=== PATIENT | female | born 1965 | race Asian ===

== ENCOUNTER 2021-02-08 08:08 | Outpatient (REF) | payer OTHER, SELFPAY | END 2021-02-08 08:09 | disposition home or self-care (01) | LOC: HO.LAB 08:08 | PROVIDERS: Visit Provider Internal Medicine | DX: Z20.822 Contact with and (suspected) exposure to COVID-19 (principal) | CPT/HCPCS: 36415; C9803; U0003; U0005 ==

== ENCOUNTER 2021-08-23 11:07 | Outpatient (REF) | payer OTHER, SELFPAY ==
[2021-08-23 13:59] LABS: Basophils Percent Auto 0.3 % (0-2); Eosinophils Absolute Auto 0.1 X10*3/uL (0.0-0.4); Eosinophils Percent Auto 1.6 % (0-4); Hematocrit 38.1 % (37-47); Hemoglobin 11.8 g/dl (12.0-16.0); Imm Gran Abs Auto 0.01 X10*3/uL (0.00-0.03); Imm Gran Pct Auto 0.3 % (0.0-0.4); Lymphocytes Absolute Auto 1.3 X10*3/uL (1.2-4.9); Lymphocytes Percent Auto 41.4 % (20-40); MANUAL DIFF FLAG NO; Mean Corpuscular Hemoglobin 25.5 pg (27.0-33.0); Mean Corpuscular Volume 82.5 fL (80-98); Mean Platelet Volume 9.7 fL (9.4-12.3); Monocytes Absolute Auto 0.2 X10*3/uL (0.1-1.2); Monocytes Percent Auto 5.6 % (2-11); Neutrophils Absolute Auto 1.5 X10*3/uL (2.0-8.3); Neutrophils Percent Auto 50.8 % (45-73); Platelet Count 205 X10*3/uL (160-400); Red Blood Count 4.62 X10*6/uL (4.20-5.50); Red Cell Distribution Width 15.9 % (11.0-16.0)
[2021-08-23 14:45] LABS: Alanine Aminotransferase 25 U/L (0-31); Albumin Level 4.1 g/dL (3.5-5.0); Alkaline Phosphatase 57 U/L (39-117); Anion Gap 13 (12-20); Aspartate Amino Transferase 25 U/L (5-31); Bilirubin Total 0.8 mg/dL (0.0-1.0); Blood Urea Nitrogen 16 mg/dL (9-16); C Reactive Protein 0.77 mg/dL (< or = 0.50); Calcium 8.7 mg/dL (8.4-10.2); Carbon Dioxide 26 mmol/L (22-29); Chloride 106 mmol/L (96-108); Cholesterol 225 mg/dL; Estimated Glomerular Filt Rate > 60; Glucose Fasting 91 mg/dL (60-99); HDL Cholesterol 57 mg/dL; LDL Cholesterol Calculated 148 mg/dl; Potassium 3.9 mmol/L (3.3-5.1); Sodium 141 mmol/L (135-145); Total Protein 6.9 g/dL (6.5-8.0); Triglycerides 100 mg/dL
[2021-08-23 15:50] LABS: Free T4 (Free Thyroxine) 0.92 ng/dL (0.71-1.85); Thyroid Stimulating Hormone 3.43 uIU/mL (0.32-4.0)
== END 2021-08-23 11:08 | disposition home or self-care (01) ==
LOC: HO.10HDL 11:07
PROVIDERS: Visit Provider Internal Medicine
DX: R60.0 Localized edema (principal); J45.909 Unspecified asthma, uncomplicated; E03.9 Hypothyroidism, unspecified; E78.00 Pure hypercholesterolemia, unspecified
CPT/HCPCS: 36415; 80053; 80061; 84439; 84443; 85025; 86140

== ENCOUNTER 2021-08-27 11:39 | Outpatient (REF) | payer OTHER, SELFPAY ==
--- NOTE | ~2021-08-27 | XR_ITS ---
EXAMINATION: XR HAND, RIGHT XR HAND, LEFT CLINICAL INFORMATION: Osteoarthritis. COMPARISON: Right hand radiographs dated 05/14/2018. TECHNIQUE: AP, oblique, and lateral views of the right and left hand. FINDINGS: Right Hand: Joint space narrowing with small marginal osteophytes at the 1st carpometacarpal joint. Joint space narrowing with tiny marginal osteophytes scattered throughout the metacarpophalangeal and interphalangeal joints. No osseous erosion. No abnormal soft tissue calcification. Left Hand: Joint space narrowing with marginal osteophytes at the triscaphe and 1st carpometacarpal joints. Mild joint space narrowing with small marginal osteophytes scattered throughout the interphalangeal joints. No osseous erosion. No fracture or dislocation. No abnormal soft tissue calcification. XR/XR hand RT min 3V IMPRESSION: RIGHT HAND: Mild osteophyte arthritis at the 1st carpal metacarpal joint as well as scattered throughout the metacarpophalangeal and interphalangeal joints, slightly progressed. LEFT HAND: Mild osteoarthrosis at the triscaphe and 1st carpometacarpal joints as well as scattered throughout the interphalangeal joints.
--- NOTE | ~2021-08-27 | XR_ITS ---
EXAMINATION: XR HAND, RIGHT XR HAND, LEFT CLINICAL INFORMATION: Osteoarthritis. COMPARISON: Right hand radiographs dated 05/14/2018. TECHNIQUE: AP, oblique, and lateral views of the right and left hand. FINDINGS: Right Hand: Joint space narrowing with small marginal osteophytes at the 1st carpometacarpal joint. Joint space narrowing with tiny marginal osteophytes scattered throughout the metacarpophalangeal and interphalangeal joints. No osseous erosion. No abnormal soft tissue calcification. Left Hand: Joint space narrowing with marginal osteophytes at the triscaphe and 1st carpometacarpal joints. Mild joint space narrowing with small marginal osteophytes scattered throughout the interphalangeal joints. No osseous erosion. No fracture or dislocation. No abnormal soft tissue calcification. XR/XR hand LT min 3V IMPRESSION: RIGHT HAND: Mild osteophyte arthritis at the 1st carpal metacarpal joint as well as scattered throughout the metacarpophalangeal and interphalangeal joints, slightly progressed. LEFT HAND: Mild osteoarthrosis at the triscaphe and 1st carpometacarpal joints as well as scattered throughout the interphalangeal joints.
[2021-08-27 14:20] LABS: Lipase 19 U/L (8-78)
[2021-08-27 14:43] LABS: Vitamin D 25-OH Total 22.7 ng/mL (>30)
[2021-09-01 05:26] LABS: Transglutaminase Ab IgG <1.0 U/mL; Transglutaminase IgA <1.0 U/mL
== END 2021-08-27 11:40 | disposition home or self-care (01) ==
LOC: HO.10HDL 11:39
PROVIDERS: Visit Provider Internal Medicine
DX: M19.042 Primary osteoarthritis, left hand (principal); M19.041 Primary osteoarthritis, right hand; E55.9 Vitamin D deficiency, unspecified; R10.9 Unspecified abdominal pain
CPT/HCPCS: 36415; 73130; 82306; 83516; 83690

== ENCOUNTER 2021-09-08 13:57 | Outpatient (REF) | payer OTHER, SELFPAY ==
--- NOTE | ~2021-09-08 | MM_ITS ---
EXAMINATION: MM SCREENING DIGITAL BREAST TOMOSYNTHESIS, BILATERAL CLINICAL INFORMATION: Screening. Asymptomatic. The lifetime risk of breast cancer based on the Tyrer-Cuzick Model is 9%. COMPARISON: Mammography: 09/13/2019, 09/06/2018, 05/04/2017 TECHNIQUE: Digital breast tomosynthesis is performed in both the craniocaudal and mediolateral oblique views along with computer-aided detection (CAD). Synthesized 2D images are generated from the tomosynthesis. FINDINGS: There are scattered areas of fibroglandular density (ACR BI-RADS breast composition Category b). There are no significant masses, abnormal calcifications, or other abnormalities. The axilla and skin contours are unremarkable. MM/MM tomosynthesis screening BI IMPRESSION: No mammographic evidence of malignancy. ASSESSMENT: BI-RADS 1: Negative RECOMMENDATION: Routine annual mammography screening. This patient's information was entered into a reminder system with a target due date for their next mammogram.
== END 2021-09-08 13:58 | disposition home or self-care (01) ==
LOC: HO.MAMMO 13:57
PROVIDERS: Visit Provider Internal Medicine
DX: Z12.31 Encounter for screening mammogram for malignant neoplasm of breast (principal)
CPT/HCPCS: 77063; 77067

== ENCOUNTER → 2021-10-05 09:21 | Outpatient (BNVA) | payer OTHER, SELFPAY | PROVIDERS: PCP Internal Medicine; Visit Provider Orthopaedic Surgery | DX: M19.041 Primary osteoarthritis, right hand (principal); M19.042 Primary osteoarthritis, left hand | CPT/HCPCS: 99202 ==

== ENCOUNTER 2022-04-19 13:57 | Outpatient (REF) | payer MEDICAID, SELFPAY ==
[2022-04-19 14:21] LABS: MANUAL DIFF FLAG NO
[2022-04-19 14:56] LABS: Basophils Percent Auto 0.5 % (0-2); Eosinophils Absolute Auto 0.1 X10*3/uL (0.0-0.4); Eosinophils Percent Auto 1.5 % (0-4); Hematocrit 39.9 % (37.0-47.0); Hemoglobin 12.4 g/dl (12.0-16.0); Imm Gran Abs Auto 0.01 X10*3/uL (0.00-0.03); Imm Gran Pct Auto 0.3 % (0.0-0.4); Lymphocytes Absolute Auto 1.2 X10*3/uL (1.2-4.9); Lymphocytes Percent Auto 31.7 % (20-40); Mean Corpuscular HGB Conc 31.1 g/dl (31.0-35.0); Mean Corpuscular Hemoglobin 26.4 pg (27.0-33.0); Mean Corpuscular Volume 85.1 fL (80.0-98.0); Mean Platelet Volume 9.5 fL (9.4-12.3); Monocytes Absolute Auto 0.1 X10*3/uL (0.1-1.2); Monocytes Percent Auto 3.3 % (2-11); Neutrophils Absolute Auto 2.5 x10*3/uL (2.0-8.3); Neutrophils Percent Auto 62.7 % (45-73); Platelet Count 205 X10*3/uL (160-400); Red Blood Count 4.69 X10*6/uL (4.20-5.50); Red Cell Distribution Width 14.5 % (11.0-16.0); White Blood Count 3.9 X10*3/uL (4.8-10.8)
[2022-04-19 15:20] LABS: Alanine Aminotransferase 20 U/L (0-31); Albumin Level 4.2 g/dL (3.5-5.0); Alkaline Phosphatase 66 U/L (39-117); Anion Gap 10 (12-20); Aspartate Amino Transferase 23 U/L (5-31); Bilirubin Total 0.5 mg/dL (0.0-1.0); Blood Urea Nitrogen 13 mg/dL (9-16); C Reactive Protein 0.14 mg/dL (< or = 0.50); Calcium 9.5 mg/dL (8.4-10.2); Carbon Dioxide 29 mmol/L (22-29); Chloride 107 mmol/L (96-108); Estimated Glomerular Filt Rate > 60; Glucose Random 100 mg/dL (60-115); Lipase 17 U/L (8-78); Potassium 3.9 mmol/L (3.3-5.1); Sodium 142 mmol/L (135-145); Total Protein 7.3 g/dL (6.5-8.0)
[2022-04-19 15:43] LABS: Free T4 (Free Thyroxine) 0.93 ng/dL (0.71-1.85); Thyroid Stimulating Hormone 4.53 uIU/mL (0.32-4.0)
== END 2022-04-19 13:58 | disposition home or self-care (01) ==
LOC: HO.LAB 13:57
PROVIDERS: PCP Internal Medicine; Visit Provider Internal Medicine
DX: R10.9 Unspecified abdominal pain (principal); E03.9 Hypothyroidism, unspecified
CPT/HCPCS: 36415; 80053; 83690; 84439; 84443; 85025; 86140

== ENCOUNTER 2022-07-28 11:14 | Outpatient (REF) | payer MEDICAID, SELFPAY ==
[2022-07-28 12:23] LABS: Influenza A PCR NEGATIVE (Negative); Influenza B PCR NEGATIVE (Negative); Resp Syncy Virus RNA Qual PCR NEGATIVE (Negative); SARS COV2 PCR INHOUSE POSITIVE (Negative)
== END 2022-07-28 11:15 | disposition home or self-care (01) ==
LOC: HO.LNP 11:14
PROVIDERS: Visit Provider Internal Medicine
DX: Z20.822 Contact with and (suspected) exposure to COVID-19 (principal)
CPT/HCPCS: 0241U

== ENCOUNTER 2022-10-04 09:51 | Day surgery (SDC) | payer MEDICAID, SELFPAY ==
--- NOTE | 2022-10-03 12:54 | P.CONAN_ITS ---
Documented by User: Azalia Mcdowell NP 10/03/22 12:55 HPI - Anesthesia Eval Consult details Narrative: 57yo F for Upper Endoscopy and Colonoscopy COUNTS INCLUDE 234 BEDS AT THE [facility] Active Problems Active Problems: All Active Problems (Updated 10/03/22 @ 12:20 by Jenna Mercedes, LAURA) Osteoarthritis of right hand (Acute) Osteoarthritis of left hand (Acute) Past Medical History Medical History Asthma Elevated cholesterol Hypothyroidism Surgical History Surgical History (Updated 10/04/22 @ 11:55 by Sylvia Roberson MD) H/O colonoscopy History of esophagogastroduodenoscopy (EGD) Hx of appendectomy Social History Social History Patient Tobacco Use Status: Never used Tobacco Use of substances other than those prescribed or required for medical reasons: No Are you DNR?: No Advance Directives: No Advance Directives Information Provided: Yes Current occupational 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 Allergies Allergy/AdvReac Type Severity Reaction Status Date / Time amoxicillin Allergy Mild Rash Verified 10/04/22 10:57 ampicillin Allergy Mild rash Verified 10/04/22 10:57 Home Medications Medication Instructions Recorded Confirmed Last Taken Type levothyroxine 13 mcg capsule 13 mcg PO DAILY 10/05/21 10/04/22 Unknown History simvastatin 5 mg tablet 5 mg PO DAILY 10/05/21 10/04/22 Unknown History Exam Exam Date and Time: October 03, 2022 1254 Pertinent Lab Results Pertinent Lab Results: Laboratory Tests 04/19/22 04/19/22 14:21 14:21 WBC 3.9 L Hgb 12.4 Hct 39.9 Plt Count 205 Sodium 142 Potassium 3.9 Chloride 107 Carbon Dioxide 29 BUN 13 Creatinine 0.70 Assessment and Plan Assessment Anesthesia Assessment: Chart Reviewed Documented by User: Sylvia Roberson MD 10/04/22 11:59 PMFSH Past Medical History Medical History Asthma Elevated cholesterol Hypothyroidism Family History Family history of problems with anesthesia: No Surgical History Surgical History (Updated 10/04/22 @ 11:55 by Sylvia Roberson MD) H/O colonoscopy History of esophagogastroduodenoscopy (EGD) Hx of appendectomy History of Problems with Anesthesia: No Social History Social History Patient Tobacco Use Status: Never used Tobacco Use of substances other than those prescribed or required for medical reasons: No Are you DNR?: No Advance Directives: No Advance Directives Information Provided: Yes Current occupational 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 Allergies Allergy/AdvReac Type Severity Reaction Status Date / Time amoxicillin Allergy Mild Rash Verified 10/04/22 10:57 ampicillin Allergy Mild rash Verified 10/04/22 10:57 Home Medications Medication Instructions Recorded Confirmed Last Taken Type levothyroxine 13 mcg capsule 13 mcg PO DAILY 10/05/21 10/04/22 Unknown History simvastatin 5 mg tablet 5 mg PO DAILY 10/05/21 10/04/22 Unknown History Exam Height,Weight and Vital Signs: Height 5 ft Weight 57.153 kg Vital Signs Temp Pulse Resp BP Pulse Ox O2 Del Method 10/04/22 11:02 97.5 F 59 16 135/67 97 Room Air Airway Mallampati Class: II TM Dist: >3cm Neck ROM: Full Loose/Missing/Broken Teeth: No (Small teeth in front with gaps in between. Denies broken or loose teeth) Heart: RRR Lungs: CTAB Assessment and Plan Assessment Anesthesia Assessment: Anesthesia Plan Discussed Final Anesthetic Review Family History of Problems with Anesthesia: No History of Problems with Anesthesia: No NPO: Yes ASA Class: II Final Preanesthetic Review: No Changes in Pt Med Stat, Meds/Allgs Chart Reviewed, Consent Obtained/Reviewed and Anes Risks/Benef Reviewed Patient Risk: Low Procedure Risk: Low Assessment/Block/Sedation in SS: Assess/Block/Sedation-SS Anesthetic Plan Anesthetic Plan: MAC: Disposition: Standard PACU
[2022-10-04 10:59] VITALS: BMI 24.6
[2022-10-04 11:02] VITALS: BP 135/67; PULSE 59; RESP 16; TEMP 36.4; O2SAT 97
[2022-10-04] MEDS: Lactated Ringers 1,000 ML 100 ML IVCONT (11:12)
--- NOTE | 2022-10-04 12:26 | MHC.SHP ---
Pre-Procedural Eval Section A Date of Service: 10/04/22 The patient is an INPATIENT: No Changes since office visit: No Cold of Flu in the past 2 weeks, No New Medical Problems, No Changes in Medication and No Patient answered all questions The History & Physical has been completed within 30 days and I have reviewed it.: Yes Section B Chief Complaint: Epigastric pain,screening Allergies: Allergies Allergy/AdvReac Type Severity Reaction Status Date / Time amoxicillin Allergy Mild Rash Verified 10/04/22 10:57 ampicillin Allergy Mild rash Verified 10/04/22 10:57 Plan I have reviewed the history and physical and performed a pertinent physical examination on my patient. No changes have occurred unless specified.
--- NOTE | 2022-10-04 13:10 | PM.OP ---
Brief Operative Note Date of Service: 10/04/22 Pre-op diagnosis: epoigastric pain screening Post-op diagnosis: same Procedure: egd colonoscopy Surgeon: Scooter Vaughn Anesthesia: MAC Was an Suture Polisher used for this Procedure?: No Estimated blood loss (mL): 5 Pathology: other Condition: stable Disposition: PACU
[2022-10-04 13:12] VITALS: BP 99/56; PULSE 80; RESP 12; TEMP 36.4; O2SAT 97
[2022-10-04 13:26] VITALS: BP 102/70; PULSE 77; RESP 15; TEMP 36.4; O2SAT 99
--- NOTE | 2022-10-05 01:18 | OP_ITS ---
SURGEON: Scooter Vaughn MD INDICATIONS: 1. Epigastric pain. 2. Colon cancer screening. PREOPERATIVE DIAGNOSIS: POSTOPERATIVE DIAGNOSIS: PROCEDURE PERFORMED: Upper endoscopy with biopsy, colonoscopy to the terminal ileum. ESTIMATED BLOOD LOSS: COMPLICATIONS: ANESTHESIA: Monitored anesthesia care. ASSISTANTS: SPECIMENS: DESCRIPTION OF PROCEDURE: History and physical performed. The risks and benefits of the procedure were explained to the patient. Informed consent was obtained. The patient was placed in the left lateral decubitus position. The Olympus video gastroscope was introduced into the esophagus, stomach, and duodenum. Examination was performed. The scope was removed. She was repositioned for colonoscopy. Digital rectal exam was performed and was found to be normal. The Olympus pediatric video colonoscope was introduced into the rectum and advanced to the cecum without difficulty. The cecum was identified by transillumination, palpation, and identification of ileocecal valve. Examination was performed. The scope was removed. She tolerated both procedures well and was taken to recovery area in stable condition. The procedure date is 10/04/2022. FINDINGS: Upper endoscopy: 1. Esophagus. The esophagus was normal. There was no esophagitis. Biopsies were obtained from the EG junction. 2. Stomach: The stomach was normal. The antral biopsies were obtained to evaluate for H pylori. 3. Duodenum: The bulb and second portion were normal. Colonoscopy: The terminal ileum was examined and appeared normal. The visualized colonic mucosa was normal. The quality of the prep was good. No polyps were identified. Retroflexed examination showed some small internal hemorrhoids. IMPRESSION: 1. Normal upper endoscopy. 2. Normal colonoscopy. RECOMMENDATION: 1. Follow up the biopsy results. 2. Repeat colonoscopy is recommended in 10 years for average risk individuals. MD KRIS Bhakta/FELIX / [id number]
== END 2022-10-04 14:55 | disposition home or self-care (01) ==
PROVIDERS: PCP Internal Medicine; Visit Provider Internal Medicine Gastroenterology
PROC: (CPT 45378; principal; 2022-10-04 11:10)
DX: Z12.11 Encounter for screening for malignant neoplasm of colon (principal); Z86.010 Personal history of colon polyps; K64.8 Other hemorrhoids; R10.13 Epigastric pain; Z80.0 Family history of malignant neoplasm of digestive organs; J45.909 Unspecified asthma, uncomplicated; E78.00 Pure hypercholesterolemia, unspecified; E03.9 Hypothyroidism, unspecified; Z79.899 Other long term (current) drug therapy; Z88.0 Allergy status to penicillin
CPT/HCPCS: 45378; 43239; 88305; 88342; J2250

== ENCOUNTER 2022-10-17 10:58 | Outpatient (REF) | payer MEDICAID, SELFPAY ==
[2022-10-17 14:03] LABS: Basophils Percent Auto 0.2 % (0-2); Eosinophils Percent Auto 0.8 % (0-4); Hematocrit 42.9 % (37.0-47.0); Hemoglobin 13.5 g/dl (12.0-16.0); Imm Gran Abs Auto 0.01 X10*3/uL (0.00-0.03); Imm Gran Pct Auto 0.2 % (0.0-0.4); Lymphocytes Absolute Auto 1.7 X10*3/uL (1.2-4.9); Lymphocytes Percent Auto 32.6 % (20-40); MANUAL DIFF FLAG SCAN; Mean Corpuscular HGB Conc 31.5 g/dl (31.0-35.0); Mean Corpuscular Hemoglobin 27.3 pg (27.0-33.0); Mean Corpuscular Volume 86.8 fL (80.0-98.0); Monocytes Absolute Auto 0.2 X10*3/uL (0.1-1.2); Monocytes Percent Auto 3.3 % (2-11); Neutrophils Absolute Auto 3.3 x10*3/uL (2.0-8.3); Neutrophils Percent Auto 62.9 % (45-73); Platelet Count 200 X10*3/uL (160-400); Red Blood Count 4.94 X10*6/uL (4.20-5.50); Red Cell Distribution Width 14.1 % (11.0-16.0); SCAN SMEAR FLAG 1; White Blood Count 5.2 X10*3/uL (4.8-10.8)
[2022-10-17 14:42] LABS: Alanine Aminotransferase 18 U/L (0-31); Albumin Level 4.2 g/dL (3.5-5.0); Alkaline Phosphatase 64 U/L (39-117); Anion Gap 9 (12-20); Aspartate Amino Transferase 22 U/L (5-31); Bilirubin Total 0.6 mg/dL (0.0-1.0); Blood Urea Nitrogen 18 mg/dL (9-16); Calcium 9.1 mg/dL (8.4-10.2); Carbon Dioxide 30 mmol/L (22-29); Chloride 104 mmol/L (96-108); Cholesterol 230 mg/dL; Estimated Glomerular Filt Rate > 60; Free T4 (Free Thyroxine) 0.91 ng/dL (0.71-1.85); Glucose Fasting 87 mg/dL (60-99); HDL Cholesterol 58 mg/dL; LDL Cholesterol Calculated 143 mg/dl; Potassium 4.3 mmol/L (3.3-5.1); Sodium 139 mmol/L (135-145); Thyroid Stimulating Hormone 3.66 uIU/mL (0.32-4.0); Total Protein 7.3 g/dL (6.5-8.0); Triglycerides 148 mg/dL
[2022-10-17 15:08] LABS: SLIDE REVIEW VERIFIED
== END 2022-10-17 10:59 | disposition home or self-care (01) ==
LOC: HO.10HDL 10:58
PROVIDERS: Visit Provider Internal Medicine
DX: Z00.00 Encounter for general adult medical examination without abnormal findings (principal); E03.9 Hypothyroidism, unspecified
CPT/HCPCS: 36415; 80053; 80061; 84439; 84443; 85025

== ENCOUNTER 2022-10-24 14:12 | Outpatient (REF) | payer MEDICAID, SELFPAY ==
--- NOTE | ~2022-10-24 | MM_ITS ---
EXAMINATION: MM SCREENING DIGITAL BREAST TOMOSYNTHESIS, BILATERAL CLINICAL INFORMATION: Screening. Asymptomatic. The lifetime risk of breast cancer based on the Tyrer-Cuzick Model is 9%. COMPARISON: Mammography: 09/08/2021, 09/13/2019, 09/06/2018 TECHNIQUE: Digital breast tomosynthesis is performed in both the craniocaudal and mediolateral oblique views along with computer-aided detection (CAD). Synthesized 2D images are generated from the tomosynthesis. FINDINGS: There are scattered areas of fibroglandular density (ACR BI-RADS breast composition Category b). There are no significant masses, abnormal calcifications, or other abnormalities. Parenchymal pattern is similar to prior studies. The axilla and skin contours are unremarkable. No significant changes from prior studies. MM/MM tomosynthesis screening BI IMPRESSION: No mammographic evidence of malignancy. ASSESSMENT: BI-RADS 1: Negative RECOMMENDATION: Routine annual mammography screening. This patient's information was entered into a reminder system with a target due date for their next mammogram.
== END 2022-10-24 14:13 | disposition home or self-care (01) ==
LOC: HO.MAMMO 14:12
PROVIDERS: PCP Internal Medicine; Visit Provider Internal Medicine
DX: Z12.31 Encounter for screening mammogram for malignant neoplasm of breast (principal)
CPT/HCPCS: 77063; 77067

== ENCOUNTER 2023-07-04 14:14 | Outpatient (REF) | payer MEDICAID, SELFPAY ==
--- NOTE | ~2023-07-04 | MM_ITS ---
Please note that the examination shouldn't be associated with the right breast ultrasound examination from the same date. That accession number is [id number] EXAMINATION: MM DIAGNOSTIC DIGITAL BREAST TOMOSYNTHESIS, BILATERAL AND RIGHT BREAST ULTRASOUND CLINICAL INFORMATION: Palpable lump upper outer quadrant right breast 7-11 o'clock region. The lifetime risk of breast cancer based on the Tyrer-Cuzick Model is 10.7%. COMPARISON: Mammography: This study is compared with prior mammograms dating back to 2018. MAMMOGRAPHY: TECHNIQUE: Digital breast tomosynthesis is performed in both the craniocaudal and mediolateral oblique views along with computer-aided detection (CAD). Synthesized 2D images are generated from the tomosynthesis. Spot compression of the upper outer quadrant of the right breast in the CC and lateral projections and a full lateral view of the right breast. FINDINGS: The breasts are heterogeneously dense, which may obscure small masses (ACR BI-RADS breast composition Category c). There are no significant masses, abnormal calcifications, or other abnormalities in either breast. There are no mammographic abnormalities in the area of palpable concern in the right breast. ULTRASOUND: Sonography of 7-11:00 region of the right breast, the area of patient's palpable concern, was performed. There is no discrete abnormality in this region. Clinical follow-up palpable area of concern is advised. MM/MM tomosynthesis diagnostic BI IMPRESSION: No mammographic signs of malignancy. No mammographic or sonographic correlates with the palpable area of concern in the upper outer quadrant of the right breast. Clinical follow-up is advised. Results are provided to the patient at time of visit by the technologist. No mammographic signs of malignancy left breast. ASSESSMENT: BI-RADS BI-RADS 1 - Negative RECOMMENDATION: 1 year F/U CLINICAL FOLLOW-UP IS ADVISED FOR THE PATIENT'S AREA OF PALPABLE CONCERN IN THE RIGHT BREAST. This patient's information was entered into a reminder system with a target due date for their next mammogram.
== END 2023-07-04 14:15 | disposition home or self-care (01) ==
LOC: HO.MAMMO 14:14
PROVIDERS: PCP Internal Medicine; Visit Provider Internal Medicine
DX: N63.11 Unspecified lump in the right breast, upper outer quadrant (principal)
CPT/HCPCS: 76642; 77062; 77066

== ENCOUNTER → 2023-07-04 14:30 | Outpatient (BNV) | payer MEDICAID, SELFPAY | PROVIDERS: PCP Internal Medicine; Visit Provider Radiology Diagnostic Radiology | DX: N63.10 Unspecified lump in the right breast, unspecified quadrant (principal) | CPT/HCPCS: 76642; 77062; 77066 ==

== ENCOUNTER 2024-05-17 09:28 | Day surgery (SDC) | payer MEDICAID, SELFPAY ==
[2024-05-15 14:32] VITALS: BMI 24.8
--- NOTE | 2024-05-16 08:41 | HO.ANESPROP2 ---
HPI - Anesthesia Eval Consult details Narrative: 58yo F for Upper Endoscopy PMFSH Active Problems Active Problems: All Active Problems Osteoarthritis of left hand (Acute) Osteoarthritis of right hand (Acute) Past Medical History Medical History Barretts esophagus GERD (gastroesophageal reflux disease) Elevated cholesterol Hypothyroidism Asthma Family History Family history of problems with anesthesia: No Surgical History Surgical History H/O colonoscopy History of esophagogastroduodenoscopy (EGD) Hx of appendectomy History of Problems with Anesthesia: No Social History Social History Patient Tobacco Use Status: Never used Tobacco Use of substances other than those prescribed or required for medical reasons: No Are you DNR?: No Advance Directives: No Advance Directives Information Provided: Yes Current occupational 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 Allergies Allergy/AdvReac Type Severity Reaction Status Date / Time amoxicillin Allergy Mild Rash Verified 10/04/22 10:57 ampicillin Allergy Mild rash Verified 10/04/22 10:57 Home Medications ?Medication ?Instructions ?Recorded ?Confirmed ?Last Taken ?Type levothyroxine 200 mcg tablet 200 mcg PO DAILY 05/15/24 05/15/24 Unknown History omeprazole 20 mg capsule,delayed 20 mg PO BID 05/15/24 05/15/24 Unknown History release simvastatin 40 mg tablet 40 mg PO DAILY 05/15/24 05/15/24 Unknown History Exam Height,Weight and Vital Signs: Height 5 ft Weight 57.606 kg Assessment and Plan Assessment Anesthesia Assessment: Chart Reviewed Final Anesthetic Review Family History of Problems with Anesthesia: No History of Problems with Anesthesia: No
[2024-05-17 10:17] VITALS: BMI 25.1
[2024-05-17 10:25] VITALS: BP 147/81; PULSE 84; RESP 16; TEMP 36.9; O2SAT 96
[2024-05-17] MEDS: Lactated Ringers 1,000 ML 100 ML IVCONT (10:44)
--- NOTE | 2024-05-17 10:56 | P.CONAN_ITS ---
[facility] Active Problems Active Problems: All Active Problems Osteoarthritis of left hand (Acute) Osteoarthritis of right hand (Acute) Past Medical History Medical History Barretts esophagus GERD (gastroesophageal reflux disease) Elevated cholesterol Hypothyroidism Asthma Functional capacity: independent ambulation Family History Family history of problems with anesthesia: No Surgical History Surgical History H/O colonoscopy History of esophagogastroduodenoscopy (EGD) Hx of appendectomy History of Problems with Anesthesia: No Social History Social History Patient Tobacco Use Status: Never used Tobacco Use of substances other than those prescribed or required for medical reasons: No Are you DNR?: No Advance Directives: No Advance Directives Information Provided: Yes Current occupational 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 Allergies Allergy/AdvReac Type Severity Reaction Status Date / Time amoxicillin Allergy Mild Rash Verified 10/04/22 10:57 ampicillin Allergy Mild rash Verified 10/04/22 10:57 Active Medications: Current Medications Albuterol Sulfate (Albuterol Sulfate (0.083%) 2.5 Mg/3 Ml Vial.Neb) 2.5 mg INHALE ONCE PRN PRN Reason: Shortness of Breath/Wheezing Lactated Ringer's (Lr) 1,000 mls @ 100 mls/hr IVCONT .Q10H MITESH Last Admin: 05/17/24 10:44 Dose: 100 mls/hr Home Medications ?Medication ?Instructions ?Recorded ?Confirmed ?Last Taken ?Type levothyroxine 200 mcg tablet 200 mcg PO DAILY 05/15/24 05/15/24 Unknown History omeprazole 20 mg capsule,delayed 20 mg PO BID 05/15/24 05/15/24 Unknown History release simvastatin 40 mg tablet 40 mg PO DAILY 05/15/24 05/15/24 Unknown History Exam Height,Weight and Vital Signs: Height 5 ft Weight 58.287 kg Last Vital Signs Temp 98.4 F 05/17/24 10:25 Pulse 84 05/17/24 10:25 Resp 16 05/17/24 10:25 BP 147/81 H 05/17/24 10:25 Pulse Ox 96 05/17/24 10:25 O2 Del Method Room Air 05/17/24 10:25 Airway Mallampati Class: II TM Dist: >3cm Neck ROM: Full Heart: RRR Lungs: CTA Assessment and Plan Assessment Anesthesia Assessment: Anesthesia Plan Discussed Final Anesthetic Review Family History of Problems with Anesthesia: No History of Problems with Anesthesia: No NPO: Yes ASA Class: II Final Preanesthetic Review: Meds/Allgs Chart Reviewed, Consent Obtained/Reviewed and Anes Risks/Benef Reviewed Patient Risk: Low Procedure Risk: Low Anesthetic Plan Anesthetic Plan: MAC: Disposition: Standard PACU
--- NOTE | 2024-05-17 11:09 | MHC.SHP ---
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 Details of Present Illness: see H&P no changes Relevant Family History (Specify if Yes): No Relevant Social History: None Present Medications: see Short Stay Collaborative assessment Medical History: No relevant PMH History of Previous Operations: Relevant previous surgery/procedure and date(s) Allergies: Allergies Allergy/AdvReac Type Severity Reaction Status Date / Time amoxicillin Allergy Mild Rash Verified 10/04/22 10:57 ampicillin Allergy Mild rash Verified 10/04/22 10:57 Review of Systems Sugical H&P ROS: Negative: Constitution, Cardiovascular, Respiratory, Neurological, Psychiatric, Hem-Onc, Allergic/Immunologic, Gastrointestinal, Genitourinary, Musculoskeletal, Integumentary, Endocrine and Eyes/Ears/Nose/Throat Exam Surgical H&P Exam: Normal: HEENT, Normal: Heart, Normal: Lungs, Normal: Extremities, Normal: Abdomen, Normal: Skin and Normal: Neurological Plan Diagnosis/Plan: Unchanged I have reviewed the history and physical and performed a pertinent physical examination on my patient. No changes have occurred unless specified. Time Spent With Patient Time: Total time managing care of this patient today ____ minutes.
[2024-05-17 11:28] VITALS: BP 110/55; PULSE 74; RESP 18; TEMP 36.3; O2SAT 96
--- NOTE | 2024-05-17 11:38 | P.BOP_ITS ---
Brief Operative Note Date of Service: 05/17/24 Pre-op diagnosis: barretts Post-op diagnosis: same Procedure: EGD Surgeon: Scooter Vaughn MD Anesthesia: MAC Was an Clinical Project Assistant used for this Procedure?: No Estimated blood loss (mL): 5 Pathology: other Condition: stable Disposition: PACU
[2024-05-17 11:47] VITALS: BP 138/82; PULSE 79; RESP 18; TEMP 36.1; O2SAT 95
--- NOTE | 2024-05-17 12:04 | OP_ITS ---
DATE OF SERVICE: 05/17/2024 SURGEON: Scooter Vaughn MD INDICATIONS: Chung esophagus. PREOPERATIVE DIAGNOSIS: POSTOPERATIVE DIAGNOSIS: PROCEDURE PERFORMED: Upper endoscopy with biopsy. ESTIMATED BLOOD LOSS: COMPLICATIONS: ANESTHESIA: Monitored anesthesia care. ASSISTANTS: SPECIMENS: DESCRIPTION OF PROCEDURE: A history and physical was performed. The risks and benefits of the procedure were explained to the patient and informed consent was obtained. The patient was placed in the left lateral decubitus position. The Olympus video gastroscope was introduced into the esophagus, stomach, and duodenum. Examination was performed and the scope was removed. She tolerated the procedure well and was returned to recovery area in stable condition. FINDINGS: Esophagus: The esophagus was normal. The EG junction was irregular. This was biopsied. There were no raised lesions or ulcerated areas. Stomach: The stomach showed no evidence of masses or ulcers. There was a single small less than 5 mm polyp on the lesser curvature in the upper body, which was removed with the biopsy forceps. Duodenum: The bulb and 2nd portion were normal. IMPRESSION: 1. Chung esophagus. 2. Gastric polyp. RECOMMENDATION: Follow up the biopsy results. MD KRIS Bhakta/FELIX / [id number]
--- NOTE | 2024-05-17 12:29 | HO.POSTANES ---
Post Anesthesia Evaluation Post Anesthesia Evaluation Date of Service: 05/17/24 Vital Signs: Vital Signs Temp Pulse Resp BP Pulse Ox O2 Del Method 05/17/24 11:47 97.0 F 79 18 138/82 95 Room Air 05/17/24 11:28 97.4 F 74 18 110/55 L 96 Room Air 05/17/24 10:25 98.4 F 84 16 147/81 H 96 Room Air Anesthesia: Monitored Mental Status: Awake Pain Control: Satisfactory Nausea/Vomiting: None Hydration: Adequate Anesthesia-Related Issues: No Anes. Related Issues
== END 2024-05-17 11:55 | disposition home or self-care (01) ==
PROVIDERS: PCP Internal Medicine; Visit Provider Internal Medicine Gastroenterology
PROC: 0DJ08ZZ Inspection of Upper Intestinal Tract, Via Natural or Artificial Opening Endoscopic (ICD-10-PCS; CPT 43235; principal; 2024-05-17 11:40)
DX: K22.70 Barrett's esophagus without dysplasia (principal); K31.7 Polyp of stomach and duodenum; Z80.0 Family history of malignant neoplasm of digestive organs; K21.9 Gastro-esophageal reflux disease without esophagitis; E03.9 Hypothyroidism, unspecified; E78.5 Hyperlipidemia, unspecified; J45.909 Unspecified asthma, uncomplicated; Z79.899 Other long term (current) drug therapy; Z88.1 Allergy status to other antibiotic agents
CPT/HCPCS: 43239; 88305; 88313; 88342; J2704

== ENCOUNTER 2024-07-31 13:19 | Outpatient (REF) | payer MEDICAID, SELFPAY ==
--- NOTE | ~2024-07-31 | MM_ITS ---
EXAMINATION: MM SCREENING DIGITAL BREAST TOMOSYNTHESIS, BILATERAL CLINICAL INFORMATION: Screening. Asymptomatic. COMPARISON: Mammography: Comparison is made with available priors TECHNIQUE: Digital breast mammography with tomosynthesis is performed in both the craniocaudal and mediolateral oblique views along with computer-aided detection (CAD). FINDINGS: The breasts are heterogeneously dense, which may obscure small masses (ACR BI-RADS breast composition Category c). There are no significant masses, abnormal calcifications, or other abnormalities. MM/MM tomosynthesis screening BI IMPRESSION: No mammographic evidence of malignancy. ASSESSMENT: BI-RADS BI-RADS 1 - Negative RECOMMENDATION: Routine annual mammography screening. 1 year F/U This examination should not preclude the clinical evaluation of a suspicious palpable abnormality. This patient's information was entered into a reminder system with a target due date for their next mammogram. Electronically signed by: Jewell Gómez DO 08/18/2024 09:36 AM EDT
== END 2024-07-31 13:20 | disposition home or self-care (01) ==
LOC: HO.MAMMO 13:19
PROVIDERS: PCP Internal Medicine; Visit Provider Internal Medicine
DX: Z12.31 Encounter for screening mammogram for malignant neoplasm of breast (principal)
CPT/HCPCS: 77063; 77067

== ENCOUNTER → 2024-07-31 13:30 | Outpatient (BNV) | payer MEDICAID, SELFPAY | PROVIDERS: PCP Internal Medicine; Visit Provider Internal Medicine | DX: Z12.31 Encounter for screening mammogram for malignant neoplasm of breast (principal) | CPT/HCPCS: 77063; 77067 ==

== ENCOUNTER 2024-10-01 12:39 | Outpatient (REF) | payer MEDICAID, SELFPAY ==
--- NOTE | ~2024-10-01 | XR_ITS ---
EXAMINATION: XR KNEE, RIGHT CLINICAL INFORMATION: Chronic pain in the right kidney COMPARISON: None available. TECHNIQUE: Four views of the right knee. FINDINGS: There is narrowing of lateral compartment of right knee joint with mild 12 grossly deformity but no evidence of fractures or joint effusions. No significant spurring seen. XR/XR knee RT 4V IMPRESSION: Degenerative changes in lateral compartment of right knee joint. Electronically signed by: Mahesh Grant MD 10/02/2024 12:15 PM CHYU BURROUGHS
[2024-10-01 13:11] LABS: MANUAL DIFF FLAG NO
[2024-10-01 13:48] LABS: Basophils Percent Auto 0.5 % (0-2); Eosinophils Absolute Auto 0.1 X10*3/uL (0.0-0.4); Eosinophils Percent Auto 1.9 % (0-4); Hematocrit 43.4 % (37.0-47.0); Hemoglobin 14.5 g/dl (12.0-16.0); Imm Gran Abs Auto 0.01 X10*3/uL (0.00-0.03); Imm Gran Pct Auto 0.2 % (0.0-0.4); Lymphocytes Absolute Auto 1.4 X10*3/uL (1.2-4.9); Lymphocytes Percent Auto 33.7 % (20-40); Mean Corpuscular HGB Conc 33.4 g/dl (31.0-35.0); Mean Corpuscular Hemoglobin 30.2 pg (27.0-33.0); Mean Corpuscular Volume 90.4 fL (80.0-98.0); Mean Platelet Volume 9.5 fL (9.4-12.3); Monocytes Absolute Auto 0.2 X10*3/uL (0.1-1.2); Monocytes Percent Auto 4.8 % (2-11); Neutrophils Absolute Auto 2.4 x10*3/uL (2.0-8.3); Neutrophils Percent Auto 58.9 % (45-73); Platelet Count 194 X10*3/uL (160-400); Red Cell Distribution Width 12.5 % (11.0-16.0); White Blood Count 4.1 X10*3/uL (4.8-10.8)
[2024-10-01 13:57] LABS: Estimated Average Glucose 103 mg/dL; Hemoglobin A1C 128.8489 umol/L; Hemoglobin A1c % 5.2 % (<6.0); Total Hemoglobin (HGBA1C) 3866.4124 umol/L
[2024-10-01 14:48] LABS: Alanine Aminotransferase 27 U/L (0-31); Albumin Level 4.2 g/dL (3.5-5.0); Alkaline Phosphatase 72 U/L (39-117); Anion Gap 14 (12-20); Aspartate Amino Transferase 27 U/L (5-31); Bilirubin Total 0.7 mg/dL (0.0-1.0); Blood Urea Nitrogen 16 mg/dL (9-16); Calcium 9.5 mg/dL (8.4-10.2); Carbon Dioxide 26 mmol/L (22-29); Chloride 106 mmol/L (96-108); Cholesterol 211 mg/dL (<200); Estimated Glomerular Filt Rate > 60; Glucose Fasting 96 mg/dL (60-99); HDL Cholesterol 64 mg/dL (>40); LDL Cholesterol Calculated 129 mg/dL (<100); Potassium 3.6 mmol/L (3.3-5.1); Sodium 142 mmol/L (135-145); Total Protein 7.2 g/dL (6.5-8.0); Triglycerides 91 mg/dL (<150)
[2024-10-01 15:05] LABS: Free T4 (Free Thyroxine) 1.24 ng/dL (0.71-1.85); Thyroid Stimulating Hormone 1.72 uIU/mL (0.32-4.0); Vitamin D 25-OH Total 29.3 ng/mL (>30)
[2024-10-01 15:38] LABS: Creatinine Urine 17.86 mg/dL; Microalbumin Urine < 5.0 mg/L
== END 2024-10-01 12:40 | disposition home or self-care (01) ==
LOC: HO.XRAY 12:39
PROVIDERS: PCP Internal Medicine; Visit Provider Internal Medicine
DX: E11.9 Type 2 diabetes mellitus without complications (principal); K21.9 Gastro-esophageal reflux disease without esophagitis; E78.00 Pure hypercholesterolemia, unspecified; E03.9 Hypothyroidism, unspecified; M25.561 Pain in right knee
CPT/HCPCS: 36415; 73564; 80053; 80061; 82043; 82306; 82570; 83036; 84439; 84443; 85025

== ENCOUNTER 2025-08-01 13:24 | Outpatient (REF) | payer MEDICAID, SELFPAY ==
--- OUTSIDE RECORDS SUMMARY | 2024-05-17 07:40 | XMS_ITS ---
Author Organization [facility] Address [address] [place] [phone] Care Team Providers Care Fish Frog Or Oyster Farmer Name Role Phone Homa (RETIRED) Mendel HANKINS Primary Care Provide r Scooter Olivo Jr Unavailable REASON FOR VISIT ch's Problems Problem Type SNOMED Code ICD Code Onset Dates Problem Status W/U Status Risk Notes Problem Ch's esophagus (231505010) Ch''s esophagus without dysplasia (K22.70) Active confirmed Problem Benign neoplasm of stomach (34819726) Gastric polyps (K31.7) Active confirmed Encounters Encounter Location Date Provider Diagnosis [facility] Outpatient [address] [place] [phone] 05/17/2024 Scooter Vaughn Jr Ch''s esophagus without dysplasia K22.70 and Gastric polyps K31.7 Assessments Encounter Date Diagnosis (ICD Code) Assessment Notes Treatment Notes Treatment Clinical Notes Section Notes 05/17/2024 Ch''s esophagus without dysplasia (ICD-10 - K22.70) 05/17/2024 Gastric polyps (ICD-10 - K31.7) Plan Of Treatment No Information Progress Notes * PEREZ CLAY NDOB:1965 (59 yo F)Acc No.[id number]:05/17/2024 EGD/MAC Patient: Joel AGUILERA PEREZ Coley Provider: Jimi Vaughn MD :1965 A ge:58 Y S ex:Female Date:05/17/2024 Address:[address] [place], [place] [phone] Pcp:Mendel Luther (RETIRED )MD Subjective: * Chief Complaints: * 1 . Ch's. * Medical History: Objective: * Vitals: Assessment: * Assessment: 1. B arrett''s esophagus without dysplasia - K22.70 (Primary) 2 . G astric polyps - K31.7 Plan: * Treatment: * Procedure Codes: 4 3239 UPPER GI ENDOSCOPY, BIOPSY * * The named appointment provid er may or may not be the originator of this progress note, and it is not deemed complete until electronically signed by the appointment provider. Sign off status: Pending * Provider: Jimi Vaughn MD Date: 0 05/17/2024 Generated for Jesús barrera/Nick/Lucianaitting on: 0 08/01/2025 01:35 PM EDT
--- NOTE | ~2025-08-01 | MM_ITS ---
EXAMINATION: MM SCREENING DIGITAL BREAST TOMOSYNTHESIS, BILATERAL CLINICAL INFORMATION: Screening. Asymptomatic. COMPARISON: Mammography: Comparison is made with available priors TECHNIQUE: Digital breast mammography with tomosynthesis is performed in both the craniocaudal and mediolateral oblique views along with computer-aided detection (CAD). FINDINGS: The breasts are heterogeneously dense, which may obscure small masses (ACR BI-RADS breast composition Category c). There are no significant masses, abnormal calcifications, or other abnormalities. MM/MM tomosynthesis screening BI IMPRESSION: No mammographic evidence of malignancy. ASSESSMENT: BI-RADS BI-RADS 1 - Negative RECOMMENDATION: Routine annual mammography screening. 1 year F/U This examination should not preclude the clinical evaluation of a suspicious palpable abnormality. This patient's information was entered into a reminder system with a target due date for their next mammogram. Electronically signed by: Jewell Gómez DO 08/05/2025 09:07 AM FLORINDA
--- OUTSIDE RECORDS SUMMARY | 2025-08-01 13:35 | XMS_ITS | Patient Health Record ---
Author Organization [facility] Address [address] [place] [id number] Care Team Providers Care Global Program Director Name Role Phone Homa (RETIRED) Mendel HANKINS Primary Care Provide r Scooter Olivo Jr Allergies Allergen (clinical drug ingredient) Drug/Non Drug Allergy documented on EMR Reaction Allergy Type Onset Date Status amoxicillin Amoxicillin Unknown Drug Allergy Act allison Reason For Referral No Information Medications Medication SIG (Take, Route, Frequency, Duration) Notes Start Date End Date Status Levothyroxine Sodium 200 MCG TAKE 1 TABL ET BY MOUTH EVERY DAY Oral for 30 Active Simvastatin 40 MG TAKE 1 TABLET BY JOSEE TH DAILY Oral for 30 Active Omeprazole 20 MG TAKE 1 CAPSULE BY MO UTH EVERY DAY 30 MINUTES BEFORE MORNING MEAL for 90 Active Immunizations Vaccine Route Administration Date Status Comme nts Influenza Unknown 09/19/2022 Refused Problems Problem Type SNOMED Code ICD Code Onset Dates Problem Status W/U Status Risk Notes Problem 867437205 Colon cancer screening (Z12.11) Active confirmed Problem 64415925 Epigastric pain (R10.13) Active confirmed Problem 019055031 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 (K22.70) Active confirmed Problem Benign neoplasm of stomach (35844372) Gastric polyps (K31.7) Active confirmed Problem Chung's esophagus (126662625) Chung''s esophagus without dysplasia (K22.70) Active confirmed Encounters Encounter Location Date Provider Diagnosis [facility] [address] [place] [id number] 04/03/2025 Scooter Vaughn Jr Plan Of Treatment Pending Test Test Name Order Date GI BIOPSY 04/03/2017 Future Test Test Name Order Date UPPER GI ENDOSCOPY 02/16/2017 COLONOSCOPY 02/16/2017 UPPER GI ENDOSCOPY 09/19/2022 COLONOSCOPY 09/19/2022 UPPER GI ENDOSCOPY 02/08/2024 Insurance Providers Payer Name Payer Address Payer Phone Subscriber Number Group Number Insured Name Patient Relationship to Insured Coverage Start Date Coverage End Date MEDICAID OF [facility] [address] [place] [phone] [id number] PEREZ CLAY Self - patient is the insured Medical (General) History Medical History History ICD Code Asthma Hypothyroidism Hyperlipidemia Colonoscopy in 10/04/22, normal, ten-year followup Chung's esophagus, EGD 10/04/22, no dys plasia, repeat EGD in 10/20. Surgical History Surgery Date(Month/Year) appendectomy
--- OUTSIDE RECORDS SUMMARY | 2025-08-01 13:35 | XMS_ITS | Encounter Summary ---
Author Organization [employer] Address [address] [facility] [address] [place] [address] Care Team Providers Care Master Automotive Glass Technician Name Role Phone Unavailable Primary Care Provider Unavailabl e Encounter Details Date Type Department Care Team (Latest Contact Info) Description 05/20/2019 Abstract [facility] CONVERSIONS Dental, Provider, DDS Social History Tobacco Use Types Packs/Day Years Used Date Smoking Tobacco: Never Assessed Comments Unknown Sex and Gender Information Value Date Recorded Sex Assigned at Female 09/26/2022 10:18 AM EDT Legal Sex Female 10:18 AM EDT Gender Identity Not on file Sexual Orientation Not on file documented as of this encounter Plan of Treatment Not on file documented as of this encounter Visit Diagnoses Not on filedocumented in this encounter
--- OUTSIDE RECORDS SUMMARY | 2025-08-01 13:35 | XMS_ITS | Clinical Summary ---
Author Organization [employer] Address [address] [facility] [address] [place] [address] Care Team Providers Care Supervisor Production Managing Name Role Phone Unavailable Primary Care Provider Unavailabl e Social History Tobacco Use Types Packs/Day Years Used Date Smoking Tobacco: Never Assessed Comments Unknown Sex and Gender Information Value Date Recorded Sex Assigned at Female 09/26/2022 10:18 AM EDT Legal Sex Female 10:18 AM EDT Gender Identity Not on file Sexual Orientation Not on file Plan of Treatment Health Maintenance Due Date Last Done Comments CT Colonography 1966 Colonoscopy 1966 Colorectal Cancer Screening 1966 Depression Screening 1966 FIT DNA/Cologuard 1966 FIT 1966 FOBT 1966 Sigmoidoscopy 1966 Disability Screening 1966 Alcohol/Substance Use Screening 1978 Tobacco Screening 1978 DTaP/Tdap/Td Vaccines (1 - Tdap) 1985 Hepatitis B Vaccines (1 of 3 - 19+ 3-dose series) 1985 Pap Smear 1987 Cervical Cancer Screening 1996 HPV/Cotest 1996 Mammogram 2006 Pneumococcal Vaccine: 50+ Ye ars (1 of 1 - PCV) 2016 Zoster Vaccines (1 of 2) 2016 COVID-19 Vaccine ( - 2023-2 5 season) 2024 Influenza Vaccine (#1) 2025 RSV Patients and Pa tients Aged 60 years or older (1 - 1-dose 75+ series) 2041 HIB Vaccines Aged Out No longer eligi ble based on patient's age to complete this topic HPV Vaccines Aged Out No longer eligi ble based on patient's age to complete this topic Hepatitis A Vaccines Aged Out No long er eligible based on patient's age to complete this topic IPV Vaccines Aged Out No longer eligi ble based on patient's age to complete this topic Meningococcal B Vaccine Aged Out No l onger eligible based on patient's age to complete this topic Meningococcal Vaccine Aged Out No tiana yojana eligible based on patient's age to complete this topic RSV under 20 months Aged Out No longe r eligible based on patient's age to complete this topic Rotavirus Vaccines Aged Out No longer eligible based on patient's age to complete this topic
== END 2025-08-01 13:25 | disposition home or self-care (01) ==
LOC: HO.MAMMO 13:24
PROVIDERS: PCP Internal Medicine; Visit Provider Internal Medicine
DX: Z12.31 Encounter for screening mammogram for malignant neoplasm of breast (principal)
CPT/HCPCS: 77063; 77067

== ENCOUNTER → 2025-08-01 13:45 | Outpatient (BNV) | payer MEDICAID, SELFPAY | PROVIDERS: PCP Internal Medicine; Visit Provider Internal Medicine | DX: Z12.31 Encounter for screening mammogram for malignant neoplasm of breast (principal) | CPT/HCPCS: 77063; 77067 ==

== ENCOUNTER 2025-11-11 09:52 | Outpatient (REF) | payer OTHER, SELFPAY ==
--- OUTSIDE RECORDS SUMMARY | 2024-05-17 06:40 | XMS_ITS ---
Author Organization [facility] Address [address] [place] [phone] Care Team Providers Care Surgical Services Director Name Role Phone Homa (RETIRED) Mendel HANKINS Primary Care Provide r Scooter Olivo Jr Unavailable [phone] REASON FOR VISIT ch's Problems Problem Type SNOMED Code ICD Code Onset Dates Problem Status W/U Status Risk Notes Problem Ch's esophagus (772754396) Ch''s esophagus without dysplasia (K22.70) Active confirmed Problem Benign neoplasm of stomach (64823397) Gastric polyps (K31.7) Active confirmed Encounters Encounter Location Date Provider Diagnosis [facility] [place] Outpatient [address] [place] [phone] 05/17/2024 Scooter Vaughn Jr Ch''s esophagus without dysplasia K22.70 and Gastric polyps K31.7 Assessments Encounter Date Diagnosis (ICD Code) Assessment Notes Treatment Notes Treatment Clinical Notes Section Notes 05/17/2024 Ch''s esophagus without dysplasia (ICD-10 - K22.70) 05/17/2024 Gastric polyps (ICD-10 - K31.7) Plan Of Treatment No Information Progress Notes * PEREZ CLAY NDOB:1965 (60 yo F)Acc No.[id number]:05/17/2024 EGD/MAC Patient: Joel AGUILERA PEREZ Coley Provider: Jimi Vaughn MD :1965 A ge:58 Y S ex:Female Date:05/17/2024 Address:[address] [place], [place] [phone] Pcp:Mendel Luther (RETIRED )MD Subjective: * Chief Complaints: * B arrett's Assessment: * Assessment: 1. B arrett''s esophagus without dysplasia - K22.70 (Primary) 2 . G astric polyps - K31.7 Plan: * Procedure Codes: 4 3239 UPPER GI ENDOSCOPY, BIOPSY Billing Information: * Procedure Codes: 86113 UPPER GI ENDOSCOPY, BIOPSY. * The named appointment provid er may or may not be the originator of this progress note, and it is not deemed complete until electronically signed by the appointment provider. Sign off status: Pending * Provider: Jimi Vaughn MD Date: 0 05/17/2024 Generated for Jesús barrera/Nick/Lucianaitting on: 1 01/12/2025 11:53 AM EST
--- OUTSIDE RECORDS SUMMARY | 2025-11-11 11:53 | XMS_ITS | Patient Health Record ---
Author Organization [facility] Address [address] [place] [phone] Care Team Providers Care Economics Department Chair Name Role Phone Homa (RETIRED) Mendel HANKINS Primary Care Provide r Unavailable Scooter Vaughn Jr Unavailable Allergies Allergen (clinical drug ingredient) Drug/Non Drug Allergy documented on EMR Reaction Allergy Type Onset Date Status amoxicillin Amoxicillin Unknown Drug Allergy Act allison Reason For Referral No Information Medications Medication SIG (Take, Route, Frequency, Duration) Notes Start Date End Date Status Levothyroxine Sodium 200 MCG Tablet TAKE 1 TABLET BY MOUTH EVERY DAY Oral; Duration: 30 Active Simvastatin 40 MG Tablet TAKE 1 TABLET B Y MOUTH DAILY Oral; Duration: 30 Active Omeprazole 20 MG Capsule Delayed Release TAKE 1 CAPSULE BY MOUTH EVERY DAY 30 MINUTES BEFORE MORNING MEAL; Duration: 90 Active Immunizations Vaccine Route Administration Date Status Comme nts Influenza Unknown 09/19/2022 Refused Social History Social History Additional Details Category Social Info Options Details Miscellaneous: Marital status: Occupation: self employed/ r etired Problems Problem Type SNOMED Code ICD Code Onset Dates Problem Status W/U Status Risk Notes Problem Colon cancer screening (382391039) Colon cancer screening (Z12.11) Active confirmed Problem Epigastric pain (60503368) Epigastric pain (R10.13) Active confirmed Problem Chung's esophagus (501323885) 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 (K22.70) Active confirmed Problem Benign neoplasm of stomach (05365014) Gastric polyps (K31.7) Active confirmed Problem Chung's esophagus (339980193) Chung''s esophagus without dysplasia (K22.70) Active confirmed Encounters Encounter Location Date Provider Diagnosis [facility] [address] [place] [phone] 04/03/2025 Scooter Vaughn Jr Plan Of Treatment [...] Start Date Coverage End Date MEDICAID OF [employer] [address] [place] [id number] PEREZ CLAY Self - patient is the insured Medical (General) History Medical History History ICD Code Asthma Hypothyroidism Hyperlipidemia Colonoscopy in 10/04/22, normal, ten-year followup Chung's esophagus, EGD 10/04/22, no dys plasia, repeat EGD in 10/20. Surgical History Surgery Date(Month/Year) appendectomy
--- OUTSIDE RECORDS SUMMARY | 2025-11-11 11:53 | XMS_ITS | Clinical Summary ---
Author Organization [employer] Address [address] [facility] [address] [place] [address] Care Team Providers Care Golf Club Repairer Name Role Phone Unavailable Primary Care Provider [...] of 2) 2016 COVID-19 Vaccine ( - 2024-2 6 season) 2025 Influenza Vaccine (#1) 2025 RSV Patients and [...]
--- OUTSIDE RECORDS SUMMARY | 2025-11-11 11:54 | XMS_ITS | Encounter Summary ---
Author Organization [employer] Address [address] [facility] [address] [place] [address] Care Team Providers Care Medical Radiation Therapist Name Role Phone Unavailable Primary Care Provider [...]
[2025-11-11 13:37] LABS: MANUAL DIFF FLAG NO
[2025-11-11 13:46] LABS: Hematocrit 44.6 % (37.0-47.0); Hemoglobin 14.5 g/dl (12.0-16.0); Imm Gran Abs Auto 0.01 X10*3/uL (0.00-0.03); Imm Gran Pct Auto 0.3 % (0.0-0.4); Lymphocytes Absolute Auto 1.1 X10*3/uL (1.2-4.9); Mean Corpuscular HGB Conc 32.5 g/dl (31.0-35.0); Mean Corpuscular Hemoglobin 30.2 pg (27.0-33.0); Mean Corpuscular Volume 92.9 fL (80.0-98.0); NRBC Abs Auto 0.000 X10*3/uL (0.0-0.012); NRBC Pct Auto 0.0 /100WBC (0.0-0.2); Platelet Count 186 X10*3/uL (160-400); Red Blood Count 4.80 X10*6/uL (4.20-5.50); White Blood Count 2.9 X10*3/uL (4.8-10.8)
[2025-11-11 14:59] LABS: Sodium 142 mmol/L (135-145)
[2025-11-11 15:00] LABS: Alanine Aminotransferase 25 U/L (0-31); Albumin Level 4.3 g/dL (3.5-5.0); Alkaline Phosphatase 69 U/L (39-117); Anion Gap 9 (12-20); Aspartate Amino Transferase 28 U/L (5-31); Blood Urea Nitrogen 14 mg/dL (9-16); Calcium 9.2 mg/dL (8.4-10.2); Carbon Dioxide 31 mmol/L (22-29); Chloride 106 mmol/L (96-108); Cholesterol 200 mg/dL (<200); Estimated Glomerular Filt Rate > 60; HDL Cholesterol 61 mg/dL (>40); Potassium 4.4 mmol/L (3.3-5.1); Total Protein 7.0 g/dL (6.5-8.0); Triglycerides 100 mg/dL (<150)
[2025-11-11 15:11] LABS: Microalbum/Creatinine Ratio Ur 23.2 ug/mg cr (<30)
[2025-11-12 05:01] LABS: Syphilis Screen Nonreactive (Nonreactive)
[2025-11-12 05:02] LABS: HBS Num1 5.87 mIU/mL (0-7.99); HBc Num1 0.10 S/CO (0.00-0.79); HIV Num 1 0.07 S/CO (0.00-0.99); Hepatitis A Antibody IgM 0.21 Index (0-0.79); ~HepC Num1 0.43 S/CO (0.00-0.79); ~Hepatitis A Antibody IgM Nonreactive (Nonreactive); ~Hepatitis B Surface Antibody NONREACTIVE (Nonreactive); ~Hepatitis C Antibody Nonreactive (Nonreactive)
[2025-11-13 13:23] LABS: HBsAGNum1 0.27 S/CO (0.00-0.99); Hepatitis B Surface Antigen Negative (Negative)
== END 2025-11-11 09:53 | disposition home or self-care (01) ==
LOC: HO.HMGCLDS 09:52
PROVIDERS: PCP Student in an Organized Health Care Education/Training Program; Visit Provider Student in an Organized Health Care Education/Training Program
DX: Z00.00 Encounter for general adult medical examination without abnormal findings (principal); Z11.4 Encounter for screening for human immunodeficiency virus [HIV]; Z11.59 Encounter for screening for other viral diseases
CPT/HCPCS: 36415; 80053; 80061; 82043; 82306; 82570; 83036; 84443; 85025; 86704; 86706; 86709; 86780; 86803; 87340; 87389

== ENCOUNTER 2025-11-14 09:17 | Outpatient (AMB) | payer OTHER, SELFPAY ==
--- OUTSIDE RECORDS SUMMARY | 2024-05-17 06:40 | XMS_ITS ---
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) Gastric polyps (K31.7) Active confirmed Encounters Encounter Location Date Provider Diagnosis [facility] [place] Outpatient [address] [place] [phone] 05/17/2024 Scooter Vaughn Jr Ch''s esophagus without dysplasia K22.70 and Gastric polyps K31.7 Assessments Encounter Date Diagnosis (ICD Code) Assessment Notes Treatment Notes Treatment Clinical Notes Section Notes 05/17/2024 Ch''s esophagus without dysplasia (ICD-10 - K22.70) 05/17/2024 Gastric polyps (ICD-10 - K31.7) Plan Of Treatment No Information Progress Notes * PEREZ CLAY NDOB:1965 (60 yo F)Acc No.[id number]:05/17/2024 EGD/MAC Patient: Joel AGUILERA PEREZ Coley Provider: Jimi Vaughn MD :1965 A ge:58 Y S ex:Female Date:05/17/2024 Address:[address] [place], [place] [phone] Pcp:Mendel Luther (RETIRED )MD Subjective: * Chief Complaints: * B arrett's Assessment: * Assessment: 1. B arrett''s esophagus without dysplasia - K22.70 (Primary) 2 . G astric polyps - K31.7 Plan: * Procedure Codes: 4 3239 UPPER GI ENDOSCOPY, BIOPSY Billing Information: * Procedure Codes: 69428 UPPER GI ENDOSCOPY, BIOPSY. * The named appointment provid er may or may not be the originator of this progress note, and it is not deemed complete until electronically signed by the appointment provider. Sign off status: Pending * Provider: Jimi Vaughn MD Date: 0 05/17/2024 Generated for Jesús barrera/Nick/Lucianaitting on: 1 01/15/2025 09:50 AM EST
--- NOTE | 2025-11-14 09:23 | A.OFFPC_ITS ---
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: No Accompanied by: Self / Same As Patient Allergies amoxicillin Allergy (Mild, Verified 11/14/25 09:23) Rash ampicillin Allergy (Mild, Verified 11/14/25 09:23) rash Medication List - Last Reconciled 11/14/25 by Juvenal Solis MD chlorhexidine gluconate 0.12% PO omeprazole 20 mg PO BID simvastatin 40 mg PO DAILY Tobacco use date assessed: 11/14/25 Dental Screening Dental Screen Date: 11/14/25 Did you have a dental visit in the last 12 months?: Yes Did you have a dental problem in the last 6 months where you did not have access to dental care?: No Was dental information given to patient?: Patient has dentist HPI HPI Comments History of Present Illness Details History of Present Illness The patient is a 60-year-old female presenting for a wellness visit and management of chronic conditions. She reports a history of hyperlipidemia and gastroesophageal reflux disease (GERD). Regarding her blood pressure, the patient states that since last year, she has had intermittent elevated readings at home, sometimes reaching 150/80-90s, whereas previously her readings were around 120/70s. She checks her blood pressure every couple of weeks. She denies any recent changes in her diet. The patient has a history of hyperlipidemia with a family history from her mother. She previously took Lipitor in [facility] starting in her 20s and is currently taking simvastatin. Recent lab work showed a total cholesterol of 200 mg/dL and an LDL of 119 mg/dL. For hypothyroidism, she was prescribed levothyroxine 200 mcg but has been taking half a tablet (100 mcg) for the past two years after a doctor in [facility] recommended the dose reduction. Her recent thyroid function tests are normal on this dose. She reports experiencing hair loss. For GERD, she has a diagnosis of Chung's esophagus from a colonoscopy on 10/04/22. She experiences stomach pain after meals, particularly after eating noodles or spaghetti. Past surgical history includes an appendectomy a long time ago. Family history is significant for a sister with diabetes, a mother who from stomach cancer, and a father who from a heart attack at age 68. She is up to date on her mammogram (July 2022), COVID-19 vaccine (September), and flu shot. Medical History: - Hyperlipidemia - Gastroesophageal reflux disease (GERD) - Hypertension, intermittent - Hypothyroidism - Chung's esophagus, diagnosed 10/04/22 - Osteoarthritis of the fingers - COVID-19 infection in February - Allergy to amoxicillin Surgical History: - Appendectomy Medications: - Levothyroxine 200 mcg, but patient bladimir es 100 mcg daily (half a tablet) for hypothyroidism - Omeprazole for acid reflux - Simvastatin for hyperlipidemia Family History: - Sister: Diabetes - Mother: Stomach cancer (), hig h cholesterol - Father: Myocardial infarction ( d at age 68) Diagnostic Results: - Labs: - Complete blood count: Normal - Thyroid function tests: Normal - Hemoglobin A1c: 5.3% - Lipid panel: Total cholesterol 200 mg/ dL, LDL cholesterol 119 mg/dL, HDL cholesterol 61 mg/dL - Tests and Diagnostics: - Mammogram (July 2022): No acute f indings mentioned. - Colonoscopy (10/04/22): Positive for Ba rrett's esophagus. - Pap Smear (4-5 years ago): No acute fi ndings mentioned. Social History - Alcohol use: Denies ever drinking alco hol. - Tobacco use: Denies ever smoking. - Illicit substance use: Denies use of m arijuana, heroin, or cocaine. - Employment: Not currently working. - Country of origin: [facility]. - Diet: Reports being very controlled wi th her diet [facility] Medical History (Updated 11/14/25 @ 09:53 by Juvenal Solis MD) Annual physical exam Mixed hyperlipidemia Elevated blood pressure reading in office without diagnosis of hypertension Barretts esophagus GERD (gastroesophageal reflux disease) Elevated cholesterol Hypothyroidism Asthma Surgical History H/O colonoscopy History of esophagogastroduodenoscopy (EGD) Hx of appendectomy Social History Housing: House Patient Tobacco Use Status: Never used Tobacco e-Cigarette/Vaping Use: Never Used service: No Current occupational status: unemployed Current occupation: house keeper/rt hand Cognitive needs: No Hearing needs: No Vision needs: No Questionnaire PHQ-9 Over the last 2 weeks, how often have you been bothered by any of the following problems? 1. Little interest or pleasure in doing things: not at all 2. Feeling down, depressed, or hopeless: several days 3. Trouble falling or staying asleep, or sleeping too much: not at all 4. Feeling tired or having little energy: not at all 5. Poor appetite or overeating: not at all 6. Feeling bad about yourself - or that you are a failure or have let yourself or your family down: several days 7. Trouble concentrating on things, such as reading the newspaper or watching television: several days 8. Moving or speaking so slowly that other people could have noticed. Or the opposite - being so fidgety or restless that you have been moving around a lot more than usual: not at all 9. Thoughts that you would be better off or of hurting yourself in some way: not at all Total score: 3 Depression Screening Interpretation: Negative Depression Screening Done: Yes 83953 - PHQ-9 Billing: Yes Source: Developed by Drs. Sujit Steiner, Alicia Mccollum, Sameer Caban and colleagues, with an educational rodo from [employer]. Thrive Questionnaire Date Thrive assessed: 11/14/25 I am a: Patient What is your living situation today?: I have a steady place to live Within the past 12 months, did the food you bought not last and you didn't have the money to get more?: Never true Within the past 12 months, did you worry whether your food would run out before you got money to buy more?: Never true Do you have trouble paying for medicines?: No Do you have trouble getting transportation to medical appointments?: No Do you have trouble paying your heating and electricity bill?: No Do you have trouble taking care of your child, family member or friend?: No Do you have trouble with day-to-day activities such as bathing, preparing meals, shopping, managing finances, etc.?: No Are you currently unemployed and looking for a job?: No Are you interested in more education?: No THRIVE Score: 0 AUDIT C Alcohol Use Questionnaire (AUDIT-C) 1. How often do you have a drink containing alcohol?: Never 3. How often do you have six or more drinks on one occasion?: Never Total Score: 0 Score Reviewed/Action Taken: Yes AUGUSTO-7 AMB Questionnaire AUGUSTO-7 Date AUGUSTO - 7 assessed: 12/03/25 Feeling nervous, anxious, or on edge: 1 = Several days Not being able to stop or control worryin = Not at all Worrying too much about different things: 1 = Several days Trouble relaxin = Not at all Being so restless that it is hard to sit still: 0 = Not at all Becoming easily annoyed or irritable: 0 = Not at all Feeling afraid as if something awful might happen: 1 = Several days Total AUGUSTO-7 score (0-4 normal; 5-9 mild; 10-14 moderate; 15-21 severe): 3 Source: Developed by Drs. Sujit Steiner, Alicia Mccollum, Sameer Caban and colleagues, with an educational rodo from [employer]. AUGUSTO-7 Assessment Billing AUGUSTO-7 Assessment Tool: AUGUSTO-7 Assessment 51900 Review of Systems Narrative Review of Systems - Cardiovascular: Reports intermittent high blood pressure readings at home up to 150/90. - Gastrointestinal: Reports postprandial stomach pain, especially after eating noodles. - Integumentary: Reports hair loss. - Musculoskeletal: Reports pain in fingers and difficulty holding items, consistent with osteoarthritis. - Allergic/Immunologic: Reports allergy to amoxicillin. All systems reviewed & are unremarkable except as reviewed in HPI and above Physical exam (Primary Care) Vital Signs: Last Vital Signs Temp 97.8 F 11/14/25 09:28 Pulse 98 11/14/25 09:28 Resp 14 11/14/25 09:28 BP 152/82 H 11/14/25 09:28 Pulse Ox 98 11/14/25 09:28 Oxygen Delivery Method Room Air 11/14/25 09:28 BMI result Body Mass Index 23.8 Tobacco/Smoking Status: Tobacco use Status Tobacco use date assessed 11/14/25 11/14/25 09:30 Patient Tobacco Use Status Never used Tobacco 11/14/25 09:25 e-Cigarette/Vaping Use Never Used 11/14/25 09:30 PHQ-9: PHQ-9 Score PHQ-9: Total score 3 11/14/25 09:38 Depression Screening Interpretation: Negative Thrive Assessment: Date of Thrive Assessment Date Thrive assessed 11/14/25 11/14/25 09:38 Narrative Physical Exam General: +Alert and oriented, Well nourished, No acute distress. Eye: Pupils are equal, round and reactive to light, Intact accommodation, Extraocular movements are intact, Normal conjunctiva, Vision unchanged. HENT: Normocephalic, Atraumatic, Tympanic membranes are clear, Normal hearing, Oral mucosa is moist, No pharyngeal erythema, Ear canals patent. Respiratory: Lungs CTA bilaterally, No wheeze, Respirations are non-labored. Cardiovascular: Regular rate, Regular rhythm, S1 auscultated, S2 auscultated, No murmur, Good pulses equal in all extremities, Normal peripheral perfusion, No edema. Gastrointestinal: Soft, Non-tender, Non-distended, Normal bowel sounds, No organomegaly. Musculoskeletal: Normal range of motion, Normal strength, No tenderness, No swelling, No deformity, Normal gait. Integumentary: Warm, Dry, [place], Intact. Neurologic: Alert, Oriented, Normal sensory, Normal motor function, No focal defects, Cranial Nerves II-XII are grossly intact, Normal deep tendon reflexes. Psychiatric: Cooperative, Appropriate mood & affect, Normal judgment. Coding Level of Care Code New Pt Level 4 (28229) New Pt Prev Care 40-64y(71742) Diagnoses Elevated blood pressure reading in office without diagnosis of hypertension R03.0 Mixed hyperlipidemia E78.2 Acquired hypothyroidism E03.9 Hypothyroidism type: acquired Chung's esophagus with dysplasia K22.719 Chung's esophagus type: with dysplasia of unspecified degree Osteoarthritis of right hand, unspecified osteoarthritis type M19.041 Osteoarthritis type: unspecified Annual physical exam Z00.00 Additional Codes AUGUSTO-7 Assessment Billing - AUGUSTO-7 Assessment Tool: AUGUSTO-7 Assessment 47597 ([id number]) PHQ-9 - 09553 - PHQ-9 Billing: Yes ([id number]) Comment [id number] Assessment & Plan Assessment & Plan (1) Elevated blood pressure reading in office without diagnosis of hypertension: Comment: - The patient's blood pressure is mildly elevated in the clinic at 150/80 mmHg, with a history of intermittent high readings at home. - Given the possibility of white coat hypertension and her upcoming travel, initiation of antihypertensive medication will be deferred. - The patient is instructed to monitor her blood pressure once or twice a week, maintain a log, and bring it to her follow-up appointment in January. - Treatment will be initiated if home readings are consistently high. Code(s): R03.0 - Elevated blood-pressure reading, without diagnosis of hypertension Category: Medical (2) Mixed hyperlipidemia: Comment: - The patient's LDL cholesterol is elevated at 119 mg/dL, with a strong family history of hyperlipidemia and heart disease. - She has previously taken Lipitor and found it effective. - Simvastatin will be discontinued, and she will be started on atorvastatin (Lipitor) 40 mg daily, to be taken at night. - A 90-day supply has been sent to the pharmacy. Code(s): E78.2 - Mixed hyperlipidemia Category: Medical (3) Hypothyroidism: Comment: - The patient is clinically and biochemically euthyroid on a self-adjusted dose of 100 mcg of levothyroxine daily. - Her prescription is being changed from 200 mcg to 100 mcg tablets to match her current intake and eliminate the need for pill splitting. - A 90-day supply has been sent to the pharmacy. - Her symptom of hair loss will be monitored, though it may also be age-related given her normal thyroid labs. Code(s): E03.9 - Hypothyroidism, unspecified Category: Medical Qualifiers: Hypothyroidism type: acquired Qualified Code(s): E03.9 - Hypothyroidism, unspecified (4) Barretts esophagus: Comment: - The patient reports symptoms consistent with GERD, triggered by certain foods. - A 90-day supply of omeprazole has been sent. - She is advised to avoid foods that she knows cause her symptoms, such as noodles. Code(s): K22.70 - 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 Category: Medical Qualifiers: Chung's esophagus type: with dysplasia of unspecified degree Qualified Code(s): K22.719 - Chung's esophagus with dysplasia, unspecified (5) Osteoarthritis of right hand: Comment: - The patient complains of symptoms in her fingers. - She is advised to perform finger exercises and may use Tylenol for pain. Code(s): M19.041 - Primary osteoarthritis, right hand Category: Medical Qualifiers: Osteoarthritis type: unspecified Qualified Code(s): M19.041 - Primary osteoarthritis, right hand (6) Annual physical exam: Comment: - The patient is up to date on her mammogram, colonoscopy, and immunizations (COVID-19 and influenza). - Her A1c is excellent at 5.3%. - She will follow up in January after her travels. Code(s): Z00.00 - Encounter for general adult medical examination without abnormal findings Category: Medical Plan: Health Maintenance: - Vaccinations: Up to date on COVID-19 and influenza shots. - Cancer Screening: Mammogram completed in July 2022, next due in July of the following year. - Colonoscopy completed on 10/04/22. - Last Pap smear was 4-5 years ago. - Diet: The patient reports she controls her diet carefully. - She was advised to avoid foods that trigger her GERD symptoms. - Follow-up: Scheduled to return to the clinic in January. Patient was informed and verbally consented to the use of an ambient scribe for clinic note documentation during this visit. Vital signs reviewed. Comprehensive history, review of systems, and physical exam completed. Medications, allergies, and problem list reviewed and updated. Counseling provided on nutrition, regular exercise, sleep hygiene, and moderation of alcohol use. Discussed age-appropriate screenings (mammogram, colonoscopy, Pap, bone density) and immunizations (flu, COVID, shingles, Tdap). Screened for depression, fall risk, and home safety; no current concerns. Discussed stress management, dental and vision care, and importance of ongoing preventive follow-up. Routine labs ordered for metabolic and lipid screening. Patient educated on healthy lifestyle and agrees with the plan. Plan I discussed the patient's mildly elevated blood pressure of 150/80 mmHg today and her report of intermittent high readings at home. We will defer starting medication at this time and she will monitor her blood pressure at home, keeping a log to review at her next visit. I reviewed her lab results, noting her LDL cholesterol is high at 119 mg/dL. Given this and her family history, I am stopping simvastatin and starting her on atorvastatin 40 mg. We also discussed her thyroid medication; her labs are perfect while taking 100 mcg of levothyroxine, so I have adjusted her prescription to 100 mcg tablets to avoid her having to split pills. I advised her to avoid foods that trigger her reflux symptoms, particularly noodles. Finally, for her osteoarthritis, I recommended finger exercises and Tylenol for pain. The patient will travel to [facility] and will follow up in January with her blood pressure log. Medications: New levothyroxine (Synthroid) 100 mcg PO DAILY 90 tabs 3RF atorvastatin (Lipitor) 40 mg PO BEDTIME 90 tabs 0RF Discontinued levothyroxine Discontinued Reason: Doctor's Order 200 mcg PO DAILY 90 tabs 1RF simvastatin Discontinued Reason: Doctor's Order 40 mg PO DAILY 90 tabs 1RF Patient Instructions: - Stop taking simvastatin. - Start taking Lipitor (atorvastatin) 40 mg once a day at night. - Your new prescription for levothyroxine is for 100 mcg tablets, so you no longer need to break the 200 mcg tablets in half. - Continue taking your omeprazole as prescribed. - Check your blood pressure once or twice a week and write the numbers down in a log. - Bring your blood pressure log with you to your next appointment. - Avoid eating foods that you know cause stomach pain, such as noodles and spaghetti. - For your finger pain, you can do finger exercises and take Tylenol if needed. - Schedule a follow-up appointment for when you return in January.
[2025-11-14 09:28] VITALS: BP 152/82; PULSE 98; RESP 14; TEMP 36.6; O2SAT 98; BMI 23.8
--- OUTSIDE RECORDS SUMMARY | 2025-11-14 09:50 | XMS_ITS | Clinical Summary ---
Author Organization [employer] Address [address] [place] [address] Care Team Providers Care Dip Dyer Name Role Phone Unavailable Primary Care Provider [...]
--- OUTSIDE RECORDS SUMMARY | 2025-11-14 09:50 | XMS_ITS | Patient Health Record ---
Author Organization [facility] Address [address] [place] [id number] Care Team Providers Care Lace Weaver Name Role Phone Homa (RETIRED) Mendel HANKINS [...] Status Risk Notes Problem Colon cancer screening (707192106) Colon cancer screening (Z12.11) Active confirmed Problem Epigastric pain (01187162) Epigastric pain (R10.13) Active confirmed Problem Chung's esophagus ([id number]) 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 (K22.70) Active confirmed Problem Benign neoplasm of stomach (43255019) Gastric polyps (K31.7) Active confirmed Problem Chung's esophagus ([id number]) Chung''s esophagus without dysplasia (K22.70) Active confirmed Encounters Encounter Location Date Provider Diagnosis [facility] [address] [place] [address] 04/03/2025 Scooter Vaughn Jr Plan Of Treatment [...] Start Date Coverage End Date MEDICAID OF [employer] [address] [place] [id number] PEREZ CLAY Self - patient is the insured Medical (General) History Medical History History ICD Code Asthma Hypothyroidism Hyperlipidemia Colonoscopy in 10/04/22, normal, ten-year followup Chung's esophagus, EGD 10/04/22, no dys plasia, repeat EGD in 10/20. Surgical History Surgery Date(Month/Year) appendectomy
--- OUTSIDE RECORDS SUMMARY | 2025-11-14 09:50 | XMS_ITS | Encounter Summary ---
Author Organization [employer] Address [address] [place] [address] Care Team Providers Care Physiotherapist'S Assistant Name Role Phone Unavailable Primary Care Provider [...]
== END 2025-11-14 09:49 | disposition home or self-care (01) ==
LOC: HO.HMCHD 09:17
PROVIDERS: Visit Provider Student in an Organized Health Care Education/Training Program
DX: R03.0 Elevated blood-pressure reading, without diagnosis of hypertension (principal); E78.2 Mixed hyperlipidemia; E03.9 Hypothyroidism, unspecified; K22.719 Barrett's esophagus with dysplasia, unspecified; M19.041 Primary osteoarthritis, right hand

== ENCOUNTER → 2025-11-14 09:17 | Outpatient (BNVA) | payer OTHER, SELFPAY | PROVIDERS: Visit Provider Student in an Organized Health Care Education/Training Program | DX: Z00.00 Encounter for general adult medical examination without abnormal findings (principal); Z13.31 Encounter for screening for depression; Z13.39 Encounter for screening examination for other mental health and behavioral disorders; M19.041 Primary osteoarthritis, right hand; K22.719 Barrett's esophagus with dysplasia, unspecified; E03.9 Hypothyroidism, unspecified; E78.2 Mixed hyperlipidemia; R03.0 Elevated blood-pressure reading, without diagnosis of hypertension | CPT/HCPCS: 96127; 99202 ==